=== PATIENT | male | born 1930 | race Native Hawaiian/Other Pacific Islander ===

== ENCOUNTER 2017-09-29 17:08 | Emergency (ER) | payer MEDICARE, OTHER ==
[~2017-09-29] VITALS: Ht 167.6 cm; Wt 90.9 kg
[2017-09-29] MEDS ORDERED: ALLO300 PO (17:18)
[2017-09-29] MEDS ORDERED: LISI-661 PO (17:18)
[2017-09-29] MEDS ORDERED: METO50 PO (17:18)
[2017-09-29] MEDS ORDERED: ATOR10TA84 PO (17:18)
[2017-09-29] MEDS ORDERED: AMIO200T44 PO (17:18)
[2017-09-29] MEDS ORDERED: ASPI-556 PO (17:18)
[2017-09-29 19:56] LABS: BASOPHILS % (AUTO) 1.4 % (0.0-2.0); EOSINOPHILS % (AUTO) 5.6 % (1.0-6.0); HEMATOCRIT 33.5 % (41-53); HEMOGLOBIN 11.4 g/dL (13.5-17.5); LYMPHOCYTES # (AUTO) 1.4 K/uL (1.0-4.8); LYMPHOCYTES % (AUTO) 24.2 % (22.0-44.0); MEAN CORPUSCULAR HEMOGLOBIN 33.3 pg (26.0-34.0); MEAN CORPUSCULAR HGB CONC 33.9 G/dL (31.0-37.0); MEAN CORPUSCULAR VOLUME 98 fL (80-100); MONOCYTES # (AUTO) 0.7 K/uL (0.1-1.0); MONOCYTES % (AUTO) 12.2 % (2.0-9.0); NEUTROPHILS # (AUTO) 3.3 K/uL (1.8-7.7); NEUTROPHILS % (AUTO) 56.6 % (40.0-70.0); PLATELET COUNT (AUTO) 196 K/uL (150-450); RED BLOOD CELL COUNT(AUTO) 3.41 MIL/uL (4.50-5.90)
[2017-09-29 20:06] LABS: ANION GAP 4 mmol/L (8-16); CALCIUM, TOTAL 8.2 mg/dL (8.8-10.5); CARBON DIOXIDE 31 mmol/L (22-29); CHLORIDE 104 mmol/L (98-107); CREATININE 1.25 mg/dL (0.60-1.30); GLOMERULAR FILTR. RATE CALC 55 mL/min (>60); GLUCOSE,RANDOM 89 mg/dL (70-110); INR 1.1 (0.9-1.1); POTASSIUM 3.6 mmol/L (3.5-5.1); PROTHROMBIN TIME 11.4 SEC (9.4-11.6); SODIUM SERUM 139 mmol/L (136-145); UREA NITROGEN, BLOOD 11 mg/dL (7-18)
[2017-09-29 20:13] LABS: B-TYPE NATRIURETIC PEPTIDE 179 pg/mL (0-100)
[2017-09-29 20:29] LABS: ALANINE AMINOTRANSFERASE 47 U/L (12-78); ALBUMIN 3.1 g/dL (3.4-5.0); ALKALINE PHOSPHATASE 112 U/L (46-116); ASPARTATE AMINOTRANSFERASE 44 U/L (15-37); BILIRUBIN,TOTAL 0.7 mg/dL (0.1-1.0); CREATINE KINASE MB 0.5 ng/mL (0-5); CREATINE KINASE, TOTAL 83 U/L (39-308); LIPASE 130 U/L (73-393); TOTAL PROTEIN, SERUM 7.2 g/dL (6.4-8.2)
[2017-09-29 20:46] LABS: APPEARANCE,URINE CLEAR (CLEAR); BILIRUBIN,URINE NEGATIVE (NEGATIVE); GLUCOSE, URINE (UA) NEGATIVE (NEGATIVE); KETONES,URINE NEGATIVE (NEGATIVE); LEUKOCYTE ESTERASE ,URINE SMALL (NEGATIVE); NITRATE,URINE NEGATIVE (NEGATIVE); OCCULT BLOOD,URINE TRACE (NEGATIVE); PROTEIN,URINE TRACE (NEGATIVE)
[2017-09-29 21:00] LABS: RBC,URINE 0-2 /HPF (0-2)
[2017-09-29 21:01] LABS: BACTERIA,URINE Few /HPF (None Seen); SQUAMOUS EPITHELIAL CELL,UR Few /LPF (None Seen)
[2017-09-29] MEDS ORDERED: LEVOFLOXACIN 500 MG/D5% WATER 100 ML IV ONE (21:30)
[2017-09-29 22:26] VITALS: BP 131/62
== END 2017-09-29 22:26 | disposition home or self-care (01) ==
LOC: EMS 17:09
DX: N39.0 Urinary tract infection, site not specified (principal); I10 Essential (primary) hypertension; Z79.82 Long term (current) use of aspirin
CPT/HCPCS: 36415; 71045; 80053; 81001; 82550; 82553; 83690; 83880; 84484; 85025; 85610; 85730; 87086; 93005; 96365; 99285; J1956

== ENCOUNTER 2017-12-07 13:28 | Inpatient (IN) | payer MEDICARE, OTHER ==
[~2017-12-07] VITALS: Ht 167.6 cm; Wt 66.1 kg
[~2017-12-07 13:28] MED LIST: ALLO300 PO; AMIO200T44 PO; AMOX1TAB16 PO; ASPI-556 PO; ATOR10TA84 PO; LISI-661 PO; METO50 PO
[2017-12-07] MEDS ORDERED: SODIUM CHLORIDE 0.9% 1,000 ML IV ONE (14:45)
[2017-12-07 15:04] LABS: EOSINOPHILS % (AUTO) 2.7 % (1.0-6.0); HEMATOCRIT 34.6 % (41-53); HEMOGLOBIN 11.7 g/dL (13.5-17.5); LYMPHOCYTES # (AUTO) 1.1 K/uL (1.0-4.8); MEAN CORPUSCULAR HEMOGLOBIN 32.3 pg (26.0-34.0); MEAN CORPUSCULAR HGB CONC 33.9 G/dL (31.0-37.0); MEAN CORPUSCULAR VOLUME 95 fL (80-100); MONOCYTES # (AUTO) 0.6 K/uL (0.1-1.0); NEUTROPHILS # (AUTO) 2.1 K/uL (1.8-7.7); NEUTROPHILS % (AUTO) 53.3 % (40.0-70.0); PLATELET COUNT (AUTO) 243 K/uL (150-450); RED BLOOD CELL COUNT(AUTO) 3.64 MIL/uL (4.50-5.90); RED CELL DISTRIBUTION WIDTH 14.2 % (11.5-14.5)
[2017-12-07 15:10] LABS: ANION GAP 9 mmol/L (8-16); CALCIUM, TOTAL 8.5 mg/dL (8.8-10.5); CARBON DIOXIDE 26 mmol/L (22-29); CHLORIDE 100 mmol/L (98-107); CREATININE 1.37 mg/dL (0.60-1.30); GLOMERULAR FILTR. RATE CALC 49 mL/min (>60); GLUCOSE,RANDOM 129 mg/dL (70-110); POTASSIUM 3.7 mmol/L (3.5-5.1); SODIUM SERUM 135 mmol/L (136-145); UREA NITROGEN, BLOOD 11 mg/dL (7-18)
[2017-12-07 15:18] LABS: LACTIC ACID 1.7 mmol/L (0.4-2.0)
[2017-12-07 15:25] LABS: ALANINE AMINOTRANSFERASE 44 U/L (12-78); ALBUMIN 2.7 g/dL (3.4-5.0); ALKALINE PHOSPHATASE 107 U/L (46-116); ASPARTATE AMINOTRANSFERASE 50 U/L (15-37); BILIRUBIN,TOTAL 0.5 mg/dL (0.1-1.0); CREATINE KINASE, TOTAL 50 U/L (39-308); LIPASE 119 U/L (73-393); TOTAL PROTEIN, SERUM 7.2 g/dL (6.4-8.2)
[2017-12-07 16:34] LABS: ERYTHROCYTE SEDIMENTATION RATE 86 MM/HR (0-15)
[2017-12-07] MEDS ORDERED: 0.9% SODIUM CHLORIDE 10 ML SYRINGE IVP PRN ×2 (18:15→22:15)
[2017-12-07] MEDS ORDERED: ACETAMINOPHEN 325 MG TABLET PO PRN ×2 (18:15→22:15)
[2017-12-07] MEDS ORDERED: ONDANSETRON HCL 4 MG/2 ML VIAL IVP PRN ×2 (18:15→22:15)
[2017-12-07 18:26] LABS: INFLUENZA TYPE A NEGATIVE FOR TYPE A (NEGATIVE); INFLUENZA TYPE B NEGATIVE FOR TYPE B (NEGATIVE)
[2017-12-07 19:39] LABS: APPEARANCE,URINE CLEAR (CLEAR); BILIRUBIN,URINE NEGATIVE (NEGATIVE); GLUCOSE, URINE (UA) NEGATIVE (NEGATIVE); KETONES,URINE NEGATIVE (NEGATIVE); LEUKOCYTE ESTERASE ,URINE TRACE (NEGATIVE); NITRATE,URINE NEGATIVE (NEGATIVE); OCCULT BLOOD,URINE LARGE (NEGATIVE); PROTEIN,URINE NEGATIVE (NEGATIVE)
[2017-12-07 20:20] LABS: BACTERIA,URINE Rare /HPF (None Seen); SQUAMOUS EPITHELIAL CELL,UR Few /LPF (None Seen)
[2017-12-07 20:56] VITALS: BP 162/70
[2017-12-07] MEDS ORDERED: ZOLPIDEM TARTRATE 5 MG TABLET PO PRN (22:15)
[2017-12-07] MEDS: DOCUSATE SODIUM 100 MG CAPSULE PO SCH (23:19)
[2017-12-07] MEDS: HEPARIN SODIUM,PORCINE 5,000 UNITS/ML VIAL SQ SCH (23:19)
[2017-12-07 23:45] VITALS: BP 125/76
[2017-12-08] MEDS ORDERED: PNEUMOCOCCAL VACCINE POLYVALENT 0.5 ML VIAL [PPSV23] IM ONE (00:30)
[2017-12-08 04:30] VITALS: BP 126/79
[2017-12-08 06:03] LABS: EOSINOPHILS % (AUTO) 3.6 % (1.0-6.0); HEMATOCRIT 32.1 % (41-53); LYMPHOCYTES # (AUTO) 1.4 K/uL (1.0-4.8); LYMPHOCYTES % (AUTO) 32.2 % (22.0-44.0); MEAN CORPUSCULAR HEMOGLOBIN 32.8 pg (26.0-34.0); MEAN CORPUSCULAR HGB CONC 34.4 G/dL (31.0-37.0); MEAN CORPUSCULAR VOLUME 95 fL (80-100); MONOCYTES # (AUTO) 0.7 K/uL (0.1-1.0); MONOCYTES % (AUTO) 14.9 % (2.0-9.0); NEUTROPHILS # (AUTO) 2.1 K/uL (1.8-7.7); NEUTROPHILS % (AUTO) 48.3 % (40.0-70.0); PLATELET COUNT (AUTO) 216 K/uL (150-450); RED BLOOD CELL COUNT(AUTO) 3.37 MIL/uL (4.50-5.90)
[2017-12-08 06:15] LABS: ANION GAP 4 mmol/L (8-16); CALCIUM, TOTAL 7.8 mg/dL (8.8-10.5); CARBON DIOXIDE 30 mmol/L (22-29); CHLORIDE 102 mmol/L (98-107); CREATININE 1.12 mg/dL (0.60-1.30); GLUCOSE,RANDOM 89 mg/dL (70-110); POTASSIUM 3.9 mmol/L (3.5-5.1); SODIUM SERUM 136 mmol/L (136-145); THYROID STIMULATING HORMONE 1.36 uIU/mL (0.36-3.74); UREA NITROGEN, BLOOD 11 mg/dL (7-18)
[2017-12-08 06:25] LABS: GLOMERULAR FILTR. RATE CALC > 60 mL/min (>60)
[2017-12-08 07:50] VITALS: BP 135/79
[2017-12-08] MEDS: METOPROLOL TARTRATE 50 MG TABLET PO SCH (08:50)
[2017-12-08] MEDS: HEPARIN SODIUM,PORCINE 5,000 UNITS/ML VIAL SQ SCH ×2 (08:50→16:37)
[2017-12-08] MEDS: DOCUSATE SODIUM 100 MG CAPSULE PO SCH ×2 (08:50→20:12)
[2017-12-08] MEDS: LISINOPRIL 10 MG TABLET PO SCH (08:50)
[2017-12-08] MEDS: ASPIRIN 81 MG EC TABLET PO SCH (08:50)
[2017-12-08] MEDS: PANTOPRAZOLE SODIUM 40 MG/VIAL IVP SCH (08:50)
[2017-12-08] MEDS: AMIODARONE HCL 200 MG TABLET PO SCH (08:50)
[2017-12-08] MEDS: ALLOPURINOL 300 MG TABLET PO SCH (08:50)
[2017-12-08] MEDS: ATORVASTATIN CALCIUM 10 MG TABLET PO SCH (08:50)
[2017-12-08 12:09] VITALS: BP 114/64
[2017-12-08] MEDS ORDERED: MAGNESIUM SULFATE 4 GM/WATER 100 ML IV PRN (15:15)
[2017-12-08] MEDS ORDERED: MAGNESIUM SULFATE 2 GM/WATER 50 ML IV PRN (15:15)
[2017-12-08] MEDS ORDERED: MAGNESIUM OXIDE 400 MG TABLET PO PRN (15:15)
[2017-12-08 16:00] VITALS: BP 122/77
[2017-12-08 16:13] LABS: ALBUMIN 2.7 g/dL (3.4-5.0)
[2017-12-08 20:05] VITALS: BP 101/60
[2017-12-08 23:30] VITALS: BP 134/76
[2017-12-09] MEDS: HEPARIN SODIUM,PORCINE 5,000 UNITS/ML VIAL SQ SCH ×3 (00:04→16:33)
[2017-12-09 04:00] VITALS: BP 128/80
[2017-12-09 05:54] LABS: EOSINOPHILS % (AUTO) 2.8 % (1.0-6.0); HEMATOCRIT 32.7 % (41-53); HEMOGLOBIN 11.2 g/dL (13.5-17.5); LYMPHOCYTES # (AUTO) 1.6 K/uL (1.0-4.8); LYMPHOCYTES % (AUTO) 34.2 % (22.0-44.0); MEAN CORPUSCULAR HEMOGLOBIN 32.6 pg (26.0-34.0); MEAN CORPUSCULAR HGB CONC 34.3 G/dL (31.0-37.0); MEAN CORPUSCULAR VOLUME 95 fL (80-100); MONOCYTES # (AUTO) 0.7 K/uL (0.1-1.0); MONOCYTES % (AUTO) 14.8 % (2.0-9.0); NEUTROPHILS # (AUTO) 2.2 K/uL (1.8-7.7); NEUTROPHILS % (AUTO) 47.2 % (40.0-70.0); PLATELET COUNT (AUTO) 235 K/uL (150-450); RED BLOOD CELL COUNT(AUTO) 3.45 MIL/uL (4.50-5.90); RED CELL DISTRIBUTION WIDTH 13.9 % (11.5-14.5)
[2017-12-09 05:59] LABS: ANION GAP 3 mmol/L (8-16); CALCIUM, TOTAL 8.1 mg/dL (8.8-10.5); CARBON DIOXIDE 30 mmol/L (22-29); CHLORIDE 101 mmol/L (98-107); CREATININE 1.13 mg/dL (0.60-1.30); GLUCOSE,RANDOM 85 mg/dL (70-110); POTASSIUM 4.1 mmol/L (3.5-5.1); SODIUM SERUM 134 mmol/L (136-145); UREA NITROGEN, BLOOD 12 mg/dL (7-18)
[2017-12-09 06:42] LABS: GLOMERULAR FILTR. RATE CALC > 60 mL/min (>60)
[2017-12-09 08:00] VITALS: BP 142/81
[2017-12-09 08:28] LABS: C-REACTIVE PROTEIN QUANT 1.83 mg/dL (0.00-0.30)
[2017-12-09] MEDS: AMIODARONE HCL 200 MG TABLET PO SCH (08:38)
[2017-12-09] MEDS: METOPROLOL TARTRATE 50 MG TABLET PO SCH (08:38)
[2017-12-09] MEDS: ATORVASTATIN CALCIUM 10 MG TABLET PO SCH (08:38)
[2017-12-09] MEDS: ALLOPURINOL 300 MG TABLET PO SCH (08:38)
[2017-12-09] MEDS: DOCUSATE SODIUM 100 MG CAPSULE PO SCH ×2 (08:38→19:51)
[2017-12-09] MEDS: LISINOPRIL 10 MG TABLET PO SCH (08:38)
[2017-12-09] MEDS: ASPIRIN 81 MG EC TABLET PO SCH (08:38)
[2017-12-09] MEDS: PANTOPRAZOLE SODIUM 40 MG/VIAL IVP SCH (08:38)
[2017-12-09 11:55] VITALS: BP 112/73
[2017-12-09 15:56] VITALS: BP 119/80
[2017-12-09 19:48] VITALS: BP 96/54
[2017-12-09 23:15] VITALS: BP 121/66
[2017-12-10 04:00] VITALS: BP 114/68
[2017-12-10 07:35] VITALS: BP 115/73
[2017-12-10] MEDS: PANTOPRAZOLE SODIUM 40 MG/VIAL IVP SCH (09:19)
[2017-12-10] MEDS: METOPROLOL TARTRATE 50 MG TABLET PO SCH (09:20)
[2017-12-10] MEDS: HEPARIN SODIUM,PORCINE 5,000 UNITS/ML VIAL SQ SCH ×3 (09:20→16:09)
[2017-12-10] MEDS: ALLOPURINOL 300 MG TABLET PO SCH (09:20)
[2017-12-10] MEDS: AMIODARONE HCL 200 MG TABLET PO SCH (09:20)
[2017-12-10] MEDS: DOCUSATE SODIUM 100 MG CAPSULE PO SCH ×2 (09:20→19:58)
[2017-12-10] MEDS: ASPIRIN 81 MG EC TABLET PO SCH (09:22)
[2017-12-10] MEDS: LISINOPRIL 10 MG TABLET PO SCH (09:23)
[2017-12-10] MEDS: ATORVASTATIN CALCIUM 10 MG TABLET PO SCH (09:24)
[2017-12-10 11:42] VITALS: BP 122/68
[2017-12-10 15:15] VITALS: BP 151/74
[2017-12-10 19:25] VITALS: BP 144/75
[2017-12-10 23:15] VITALS: BP 108/63
[2017-12-11] MEDS: HEPARIN SODIUM,PORCINE 5,000 UNITS/ML VIAL SQ SCH ×3 (00:24→15:51)
[2017-12-11 02:00] LABS: APPEARANCE,URINE CLEAR (CLEAR); BILIRUBIN,URINE NEGATIVE (NEGATIVE); GLUCOSE, URINE (UA) NEGATIVE (NEGATIVE); KETONES,URINE NEGATIVE (NEGATIVE); LEUKOCYTE ESTERASE ,URINE MODERATE (NEGATIVE); NITRATE,URINE NEGATIVE (NEGATIVE); OCCULT BLOOD,URINE SMALL (NEGATIVE); PH,URINE 5.5 (5.0-8.0); PROTEIN,URINE NEGATIVE (NEGATIVE); UROBILINOGEN,URINE 0.2 mg/dL (<=1.0)
[2017-12-11 02:19] LABS: BACTERIA,URINE Rare /HPF (None Seen)
[2017-12-11 02:20] LABS: SQUAMOUS EPITHELIAL CELL,UR Rare /LPF (None Seen)
[2017-12-11 03:30] VITALS: BP 116/69
[2017-12-11 06:48] LABS: BASOPHILS % (AUTO) 0.9 % (0.0-2.0); HEMATOCRIT 32.3 % (41-53); HEMOGLOBIN 11.1 g/dL (13.5-17.5); LYMPHOCYTES % (AUTO) 32.2 % (22.0-44.0); MEAN CORPUSCULAR HEMOGLOBIN 32.3 pg (26.0-34.0); MEAN CORPUSCULAR HGB CONC 34.4 G/dL (31.0-37.0); MEAN CORPUSCULAR VOLUME 94 fL (80-100); MONOCYTES # (AUTO) 0.9 K/uL (0.1-1.0); MONOCYTES % (AUTO) 14.6 % (2.0-9.0); NEUTROPHILS # (AUTO) 3.2 K/uL (1.8-7.7); NEUTROPHILS % (AUTO) 51.3 % (40.0-70.0); PLATELET COUNT (AUTO) 224 K/uL (150-450); RED BLOOD CELL COUNT(AUTO) 3.44 MIL/uL (4.50-5.90); RED CELL DISTRIBUTION WIDTH 14.1 % (11.5-14.5)
[2017-12-11 07:39] LABS: C-REACTIVE PROTEIN QUANT 1.39 mg/dL (0.00-0.30)
[2017-12-11 07:55] VITALS: BP 141/63
[2017-12-11 08:18] LABS: ERYTHROCYTE SEDIMENTATION RATE 65 MM/HR (0-15)
[2017-12-11] MEDS: ASPIRIN 81 MG EC TABLET PO SCH (08:48)
[2017-12-11] MEDS: LISINOPRIL 10 MG TABLET PO SCH (08:48)
[2017-12-11] MEDS: ATORVASTATIN CALCIUM 10 MG TABLET PO SCH (08:48)
[2017-12-11] MEDS: METOPROLOL TARTRATE 50 MG TABLET PO SCH (08:48)
[2017-12-11] MEDS: PANTOPRAZOLE SODIUM 40 MG/VIAL IVP SCH (08:48)
[2017-12-11] MEDS: ALLOPURINOL 300 MG TABLET PO SCH (08:49)
[2017-12-11] MEDS: AMIODARONE HCL 200 MG TABLET PO SCH (08:49)
[2017-12-11] MEDS: DOCUSATE SODIUM 100 MG CAPSULE PO SCH ×2 (08:49→20:01)
[2017-12-11 11:30] VITALS: BP 123/68
[2017-12-11] MEDS ORDERED: INDIUM IN-111 OXYQUINOLINE/.5MCL ISOTOPE 1 EA INJ INJ ONE (12:55)
[2017-12-11 16:12] VITALS: BP 122/79
[2017-12-11 19:10] LABS: RAPID PLASMA REAGIN NONREACTIVE (NONREACTIVE)
[2017-12-11 23:30] VITALS: BP 104/69
[2017-12-12] MEDS: HEPARIN SODIUM,PORCINE 5,000 UNITS/ML VIAL SQ SCH ×2 (00:03→09:00)
[2017-12-12 04:50] VITALS: BP 138/70
[2017-12-12 07:59] VITALS: BP 126/72
[2017-12-12] MEDS: METOPROLOL TARTRATE 50 MG TABLET PO SCH (09:00)
[2017-12-12] MEDS: AMIODARONE HCL 200 MG TABLET PO SCH (09:00)
[2017-12-12] MEDS: DOCUSATE SODIUM 100 MG CAPSULE PO SCH (09:00)
[2017-12-12] MEDS: PANTOPRAZOLE SODIUM 40 MG/VIAL IVP SCH (09:00)
[2017-12-12] MEDS: ALLOPURINOL 300 MG TABLET PO SCH (09:00)
[2017-12-12] MEDS: ATORVASTATIN CALCIUM 10 MG TABLET PO SCH (09:00)
[2017-12-12] MEDS: ASPIRIN 81 MG EC TABLET PO SCH (09:01)
[2017-12-12] MEDS: LISINOPRIL 10 MG TABLET PO SCH (09:01)
[2017-12-12 11:23] VITALS: BP 115/68
[2017-12-15 10:45] LABS: BARTONELLA QUINTANA IGG TITER Negative titer (Neg:<1:320); BARTONELLA QUINTANA IGM TITER Negative titer (Neg:<1:100)
[2017-12-15 12:42] LABS: LEGIONELLA PNEUMO AG URINE Negative (Negative)
== END 2017-12-12 14:59 | disposition home or self-care (01) | DRG 864 ==
LOC: EMS 13:30 → UNDOADMIN 18:53 → 6N 18:53
PROVIDERS: ADMIT Internal Medicine; ATTEND Internal Medicine
DX: R50.9 Fever, unspecified (principal); J98.11 Atelectasis; J90 Pleural effusion, not elsewhere classified; I25.10 Atherosclerotic heart disease of native coronary artery without angina pectoris; E78.5 Hyperlipidemia, unspecified; I48.91 Unspecified atrial fibrillation; N28.1 Cyst of kidney, acquired; K59.00 Constipation, unspecified; M47.896 Other spondylosis, lumbar region; J47.9 Bronchiectasis, uncomplicated; N20.0 Calculus of kidney; M48.061 Spinal stenosis, lumbar region without neurogenic claudication; I11.9 Hypertensive heart disease without heart failure; M43.16 Spondylolisthesis, lumbar region; I70.0 Atherosclerosis of aorta; E78.00 Pure hypercholesterolemia, unspecified; M46.90 Unspecified inflammatory spondylopathy, site unspecified; M10.9 Gout, unspecified; R70.0 Elevated erythrocyte sedimentation rate; Z90.49 Acquired absence of other specified parts of digestive tract; Z95.5 Presence of coronary angioplasty implant and graft; Z28.21 Immunization not carried out because of patient refusal; Z95.0 Presence of cardiac pacemaker
CPT/HCPCS: 51701; 71250; 72131; 74176; 78806; 82308; 83605; 83615; 83735; 84145; 84155; 84165; 84443; 85651; 86038; 86140; 86430; 86431; 86480; 86592; 86611; 86622; 86738; 87040; 87070; 87081; 87086; 87205; 87449; 87804; 87899; 93005; 93306; 96361; 96374; 99285; A9547; C9113; J1644; J7030

== ENCOUNTER 2019-03-15 15:23 | Emergency (ER) | payer MEDICARE, OTHER ==
[~2019-03-15] VITALS: Ht 170.2 cm; Wt 72.7 kg
[~2019-03-15 15:23] MED LIST changes: -AMOX1TAB16 PO
[2019-03-15 16:34] LABS: BASOPHILS % (AUTO) 1.5 % (0.0-2.0); EOSINOPHILS % (AUTO) 2.1 % (1.0-6.0); HEMATOCRIT 36.9 % (41-53); HEMOGLOBIN 12.2 g/dL (13.5-17.5); LYMPHOCYTES # (AUTO) 1.6 K/uL (1.0-4.8); LYMPHOCYTES % (AUTO) 43.5 % (22.0-44.0); MEAN CORPUSCULAR HGB CONC 33.1 G/dL (31.0-37.0); MEAN CORPUSCULAR VOLUME 94 fL (80-100); MONOCYTES # (AUTO) 0.4 K/uL (0.1-1.0); MONOCYTES % (AUTO) 11.6 % (2.0-9.0); NEUTROPHILS # (AUTO) 1.5 K/uL (1.8-7.7); NEUTROPHILS % (AUTO) 41.3 % (40.0-70.0); PLATELET COUNT (AUTO) 149 K/uL (150-450); RED BLOOD CELL COUNT(AUTO) 3.94 MIL/uL (4.50-5.90); RED CELL DISTRIBUTION WIDTH 14.4 % (11.5-14.5)
[2019-03-15 16:49] LABS: ANION GAP 8 mmol/L (8-16); CALCIUM, TOTAL 8.6 mg/dL (8.8-10.5); CARBON DIOXIDE 27 mmol/L (22-29); CHLORIDE 104 mmol/L (98-107); CREATININE 0.94 mg/dL (0.60-1.30); GLUCOSE,RANDOM 96 mg/dL (70-110); POTASSIUM 3.5 mmol/L (3.5-5.1); SODIUM SERUM 139 mmol/L (136-145); UREA NITROGEN, BLOOD 9 mg/dL (7-18)
[2019-03-15 16:54] LABS: ALANINE AMINOTRANSFERASE 8 U/L (12-78); ALBUMIN 3.4 g/dL (3.4-5.0); ALKALINE PHOSPHATASE 91 U/L (46-116); ASPARTATE AMINOTRANSFERASE 28 U/L (15-37); BILIRUBIN,TOTAL 0.9 mg/dL (0.1-1.0); LIPASE 118 U/L (73-393); TOTAL PROTEIN, SERUM 7.7 g/dL (6.4-8.2)
[2019-03-15 16:55] LABS: GLOMERULAR FILTR. RATE CALC > 60 mL/min (>60)
[2019-03-15 19:49] LABS: APPEARANCE,URINE CLOUDY (CLEAR); GLUCOSE, URINE (UA) NEGATIVE (NEGATIVE); KETONES,URINE TRACE mg/dL (NEGATIVE); LEUKOCYTE ESTERASE ,URINE LARGE (NEGATIVE); NITRATE,URINE NEGATIVE (NEGATIVE); OCCULT BLOOD,URINE SMALL (NEGATIVE); PH,URINE 5.5 (5.0-8.0); PROTEIN,URINE TRACE (NEGATIVE)
[2019-03-15 20:17] LABS: BILIRUBIN,URINE PRELIM. POSITIVE (NEGATIVE)
[2019-03-15 20:32] LABS: WBC,URINE 51-100 /HPF (0-5)
[2019-03-15 20:33] LABS: BACTERIA,URINE Moderate /HPF (None Seen); RBC,URINE 0-2 /HPF (0-2); SQUAMOUS EPITHELIAL CELL,UR Few /LPF (None Seen); YEAST,URINE Few /HPF (None Seen)
[2019-03-15] MEDS ORDERED: CefTRIAXone SODIUM 1 GM/VIAL IM ONE (21:15)
[2019-03-15] MEDS ORDERED: LIDOCAINE/PF 1% 2 ML VIAL IM ONE (21:15)
[2019-03-15 21:30] VITALS: BP 128/74
== END 2019-03-15 22:35 | disposition home or self-care (01) ==
LOC: EMS 15:24
DX: N39.0 Urinary tract infection, site not specified (principal); I10 Essential (primary) hypertension; E78.00 Pure hypercholesterolemia, unspecified; I25.10 Atherosclerotic heart disease of native coronary artery without angina pectoris; I48.91 Unspecified atrial fibrillation
CPT/HCPCS: 36415; 71045; 74176; 80053; 81001; 83690; 84484; 85025; 87086; 93005; 96372; 99284; J0696; J3490

== ENCOUNTER 2019-06-19 17:29 | Inpatient (IN) | payer MEDICARE, OTHER ==
[~2019-06-19] VITALS: Ht 165.1 cm; Wt 70.2 kg
[2019-06-19] MEDS ORDERED: 0.9% SODIUM CHLORIDE 10 ML SYRINGE IVP PRN ×2 (17:45→21:00)
[2019-06-19] MEDS ORDERED: ACETAMINOPHEN 1000 MG/ISO-OSM 100 ML IV ONE (18:00)
[2019-06-19 18:28] LABS: BASOPHILS % (AUTO) 0.6 % (0.0-2.0); EOSINOPHILS % (AUTO) 0 % (1.0-6.0); HEMATOCRIT 35.8 % (41-53); HEMOGLOBIN 12.3 g/dL (13.5-17.5); LYMPHOCYTES # (AUTO) 1.5 K/uL (1.0-4.8); LYMPHOCYTES % (AUTO) 21.6 % (22.0-44.0); MEAN CORPUSCULAR HEMOGLOBIN 33.6 pg (26.0-34.0); MEAN CORPUSCULAR HGB CONC 34.3 G/dL (31.0-37.0); MEAN CORPUSCULAR VOLUME 98 fL (80-100); MONOCYTES # (AUTO) 0.6 K/uL (0.1-1.0); MONOCYTES % (AUTO) 7.9 % (2.0-9.0); NEUTROPHILS # (AUTO) 4.9 K/uL (1.8-7.7); NEUTROPHILS % (AUTO) 69.9 % (40.0-70.0); PLATELET COUNT (AUTO) 115 K/uL (150-450); RED BLOOD CELL COUNT(AUTO) 3.66 MIL/uL (4.50-5.90); RED CELL DISTRIBUTION WIDTH 13.5 % (11.5-14.5)
[2019-06-19] MEDS ORDERED: SODIUM CHLORIDE 0.9% 1,900 ML IV ONE (18:31)
[2019-06-19 18:36] LABS: APPEARANCE,URINE CLOUDY (CLEAR); GLUCOSE, URINE (UA) NEGATIVE (NEGATIVE); KETONES,URINE 15 mg/dL (NEGATIVE); LEUKOCYTE ESTERASE ,URINE SMALL (NEGATIVE); NITRATE,URINE NEGATIVE (NEGATIVE); OCCULT BLOOD,URINE LARGE (NEGATIVE); PROTEIN,URINE SEE CONFIRM (NEGATIVE)
[2019-06-19 18:39] LABS: CALCIUM, TOTAL 8.1 mg/dL (8.8-10.5); CREATININE 1.15 mg/dL (0.60-1.30); POTASSIUM 4.3 mmol/L (3.5-5.1)
[2019-06-19] MEDS ORDERED: AZITHROMYCIN 500 MG/NS 250 ML IV ONE (18:45)
[2019-06-19] MEDS ORDERED: CefTRIAXone 1 GM/DEXTROSE 50 ML IV ONE (18:45)
[2019-06-19 18:47] LABS: BILIRUBIN,URINE PRELIM. POSITIVE (NEGATIVE)
[2019-06-19 18:47] LABS: LACTIC ACID 1.6 mmol/L (0.4-2.0)
[2019-06-19 18:52] LABS: INFLUENZA TYPE A NEGATIVE FOR TYPE A (NEGATIVE); INFLUENZA TYPE B NEGATIVE FOR TYPE B (NEGATIVE)
[2019-06-19 18:53] LABS: SULFOSALICYLIC ACID,URINE 3+ (Negative)
[2019-06-19 18:54] LABS: BACTERIA,URINE None Seen /HPF (None Seen); RBC,URINE Full Field /HPF (0-2)
[2019-06-19 18:55] LABS: INR 1.1 (0.9-1.1); PROTHROMBIN TIME 11.6 SEC (9.4-11.6)
[2019-06-19 19:06] LABS: ALBUMIN 3.4 g/dL (3.4-5.0); BILIRUBIN,TOTAL 0.5 mg/dL (0.1-1.0); TOTAL PROTEIN, SERUM 7.6 g/dL (6.4-8.2)
[2019-06-19] MEDS ORDERED: ALBUTEROL SULFATE 2.5 MG/0.5 ML NEB SOLUTION NEB ONE (19:45)
[2019-06-19] MEDS ORDERED: IPRATROPIUM BROMIDE 0.5 MG/2.5 ML NEB SOLUTION NEB ONE (19:45)
[2019-06-19] MEDS ORDERED: OSELTAMIVIR PHOSPHATE 75 MG CAPSULE PO ONE (20:45)
[2019-06-19] MEDS ORDERED: ONDANSETRON HCL 4 MG/2 ML VIAL IVP PRN (21:00)
[2019-06-19] MEDS ORDERED: ACETAMINOPHEN 325 MG TABLET PO PRN (21:00)
[2019-06-19] MEDS: IPRATROPIUM BROMIDE 0.5 MG/2.5 ML NEB SOLUTION NEB SCH (22:25)
[2019-06-19] MEDS: ALBUTEROL SULFATE 2.5 MG/0.5 ML NEB SOLUTION NEB SCH (22:25)
[2019-06-20] MEDS: IPRATROPIUM BROMIDE 0.5 MG/2.5 ML NEB SOLUTION NEB SCH ×3 (03:00→23:16)
[2019-06-20] MEDS: ALBUTEROL SULFATE 2.5 MG/0.5 ML NEB SOLUTION NEB SCH ×3 (03:00→23:16)
[2019-06-20 03:02] VITALS: BP 162/57
[2019-06-20 05:10] VITALS: BP 159/109
[2019-06-20 12:05] VITALS: BP 147/80
[2019-06-20] MEDS ORDERED: ACETAMINOPHEN 325 MG TABLET ONE (12:42)
[2019-06-20 13:00] LABS: APPEARANCE,URINE CLEAR (CLEAR); BILIRUBIN,URINE NEGATIVE (NEGATIVE); GLUCOSE, URINE (UA) NEGATIVE (NEGATIVE); KETONES,URINE NEGATIVE (NEGATIVE); LEUKOCYTE ESTERASE ,URINE SMALL (NEGATIVE); NITRATE,URINE NEGATIVE (NEGATIVE); OCCULT BLOOD,URINE LARGE (NEGATIVE); PROTEIN,URINE SEE CONFIRM (NEGATIVE); UROBILINOGEN,URINE 0.2 mg/dL (<=1.0)
[2019-06-20 13:17] LABS: BACTERIA,URINE None Seen /HPF (None Seen); RBC,URINE 51-100 /HPF (0-2); SQUAMOUS EPITHELIAL CELL,UR Few /LPF (None Seen)
[2019-06-20 17:42] VITALS: BP 144/75
[2019-06-20 19:50] VITALS: BP 147/109
[2019-06-20] MEDS: ACETAMINOPHEN 325 MG TABLET PO PRN (19:59)
[2019-06-20] MEDS ORDERED: METO50 PO (20:08)
[2019-06-20] MEDS ORDERED: LISI-661 PO (20:08)
[2019-06-20] MEDS ORDERED: SODIUM CHLORIDE 0.9% 100 ML ONE (21:26)
[2019-06-20] MEDS ORDERED: LISINOPRIL 10 MG TABLET PO SCH (21:30)
[2019-06-20] MEDS ORDERED: METOPROLOL TARTRATE 50 MG TABLET PO SCH (21:30)
[2019-06-20] MEDS: AZITHROMYCIN 500 MG/NS 250 ML IV SCH (21:42)
[2019-06-20 22:11] VITALS: BP 131/87
[2019-06-20] MEDS ORDERED: BISACODYL 10 MG RECTAL RECTAL SUPPOSITORY PR PRN (22:15)
[2019-06-20] MEDS ORDERED: HYDROCODONE/ACETAMINOPHEN 5-325 MG TABLET PO PRN (22:15)
[2019-06-20] MEDS ORDERED: ACETAMINOPHEN 325 MG TABLET PO PRN (22:15)
[2019-06-20] MEDS ORDERED: ALBUTEROL SULFATE 2.5 MG/0.5 ML NEB SOLUTION NEB PRN ×2 (22:15→22:30)
[2019-06-20] MEDS ORDERED: MAGNESIUM HYDROXIDE SUSPENSION 30 ML UDCUP PO PRN (22:15)
[2019-06-20] MEDS ORDERED: IPRATROPIUM BROMIDE 0.5 MG/2.5 ML NEB SOLUTION NEB PRN ×2 (22:15→22:30)
[2019-06-20] MEDS ORDERED: MORPHINE SULFATE 2 MG/ML SYRINGE IVP PRN (22:15)
[2019-06-20] MEDS ORDERED: ZOLPIDEM TARTRATE 5 MG TABLET PO PRN (22:15)
[2019-06-20] MEDS ORDERED: ONDANSETRON HCL 4 MG/2 ML VIAL IVP PRN (22:15)
[2019-06-20] MEDS: CefTRIAXone 1 GM/DEXTROSE 50 ML IV SCH (22:58)
[2019-06-21] VITALS (7 sets, daily range): BP systolic 115–158; BP diastolic 59–85
[2019-06-21] MEDS: HEPARIN SODIUM,PORCINE 5,000 UNITS/ML VIAL SQ SCH ×2 (00:07→08:52)
[2019-06-21] MEDS: IPRATROPIUM BROMIDE 0.5 MG/2.5 ML NEB SOLUTION NEB SCH ×6 (03:00→23:19)
[2019-06-21] MEDS: ALBUTEROL SULFATE 2.5 MG/0.5 ML NEB SOLUTION NEB SCH ×6 (03:00→23:19)
[2019-06-21] MEDS: ACETAMINOPHEN 325 MG TABLET PO PRN (04:10)
[2019-06-21] MEDS: METOPROLOL TARTRATE 50 MG TABLET PO SCH (08:52)
[2019-06-21] MEDS: LISINOPRIL 10 MG TABLET PO SCH (08:52)
[2019-06-21] MEDS: DOCUSATE SODIUM 100 MG CAPSULE PO SCH ×2 (08:58→21:00)
[2019-06-21] MEDS: AZITHROMYCIN 500 MG/NS 250 ML IV SCH (21:15)
[2019-06-21] MEDS: CefTRIAXone 1 GM/DEXTROSE 50 ML IV SCH (22:18)
[2019-06-22] MEDS: ALBUTEROL SULFATE 2.5 MG/0.5 ML NEB SOLUTION NEB SCH ×5 (03:00→19:44)
[2019-06-22] MEDS: IPRATROPIUM BROMIDE 0.5 MG/2.5 ML NEB SOLUTION NEB SCH ×5 (03:00→19:44)
[2019-06-22 05:56] VITALS: BP 144/60
[2019-06-22 07:15] LABS: ANION GAP 7 mmol/L (8-16); CALCIUM, TOTAL 7.9 mg/dL (8.8-10.5); CARBON DIOXIDE 26 mmol/L (22-29); CHLORIDE 93 mmol/L (98-107); CREATININE 0.91 mg/dL (0.60-1.30); GLUCOSE,RANDOM 103 mg/dL (70-110); SODIUM SERUM 126 mmol/L (136-145); UREA NITROGEN, BLOOD 9 mg/dL (7-18)
[2019-06-22 07:18] LABS: BASOPHILS % (AUTO) 0.5 % (0.0-2.0); EOSINOPHILS % (AUTO) 0.1 % (1.0-6.0); HEMATOCRIT 31.9 % (41-53); HEMOGLOBIN 11.1 g/dL (13.5-17.5); LYMPHOCYTES % (AUTO) 22.6 % (22.0-44.0); MEAN CORPUSCULAR HEMOGLOBIN 33.2 pg (26.0-34.0); MEAN CORPUSCULAR HGB CONC 34.8 G/dL (31.0-37.0); MEAN CORPUSCULAR VOLUME 96 fL (80-100); MONOCYTES # (AUTO) 0.5 K/uL (0.1-1.0); MONOCYTES % (AUTO) 12.2 % (2.0-9.0); NEUTROPHILS # (AUTO) 2.9 K/uL (1.8-7.7); NEUTROPHILS % (AUTO) 64.6 % (40.0-70.0); PLATELET COUNT (AUTO) 94 K/uL (150-450); RED BLOOD CELL COUNT(AUTO) 3.34 MIL/uL (4.50-5.90); RED CELL DISTRIBUTION WIDTH 13.6 % (11.5-14.5)
[2019-06-22 07:26] LABS: GLOMERULAR FILTR. RATE CALC > 60 mL/min (>60)
[2019-06-22 07:48] VITALS: BP 120/66
[2019-06-22] MEDS: METOPROLOL TARTRATE 50 MG TABLET PO SCH (09:00)
[2019-06-22] MEDS: DOCUSATE SODIUM 100 MG CAPSULE PO SCH ×2 (09:00→20:50)
[2019-06-22] MEDS: LISINOPRIL 10 MG TABLET PO SCH (09:31)
[2019-06-22 11:37] VITALS: BP 112/59
[2019-06-22 15:41] LABS: POTASSIUM,URINE RANDOM 11 mmol/L (12-75); SODIUM,URINE RANDOM 25 mmol/l (20-110)
[2019-06-22 15:42] LABS: CREATININE,URINE RANDOM 32.1 mg/dL (30.0-125.0)
[2019-06-22 16:30] VITALS: BP 112/52
[2019-06-22] MEDS: SODIUM CHLORIDE 0.9% 1,000 ML IV SCH (18:20)
[2019-06-22 19:36] VITALS: BP 132/61
[2019-06-22] MEDS: AZITHROMYCIN 500 MG/NS 250 ML IV SCH (21:26)
[2019-06-22] MEDS: CefTRIAXone 1 GM/DEXTROSE 50 ML IV SCH (22:41)
[2019-06-22 23:46] VITALS: BP 127/59
[2019-06-23] MEDS: IPRATROPIUM BROMIDE 0.5 MG/2.5 ML NEB SOLUTION NEB SCH ×4 (00:56→11:11)
[2019-06-23] MEDS: ALBUTEROL SULFATE 2.5 MG/0.5 ML NEB SOLUTION NEB SCH ×4 (00:57→11:11)
[2019-06-23 04:49] VITALS: BP 148/60
[2019-06-23 07:45] VITALS: BP 142/80
[2019-06-23 07:58] LABS: ANION GAP 8 mmol/L (8-16); CALCIUM, TOTAL 7.9 mg/dL (8.8-10.5); CARBON DIOXIDE 26 mmol/L (22-29); CHLORIDE 96 mmol/L (98-107); CREATININE 0.87 mg/dL (0.60-1.30); GLUCOSE,RANDOM 100 mg/dL (70-110); PHOSPHORUS 2.4 mg/dL (2.5-4.9); POTASSIUM 3.8 mmol/L (3.5-5.1); SODIUM SERUM 130 mmol/L (136-145); UREA NITROGEN, BLOOD 8 mg/dL (7-18)
[2019-06-23 08:02] LABS: GLOMERULAR FILTR. RATE CALC > 60 mL/min (>60)
[2019-06-23] MEDS ORDERED: MAGNESIUM SULFATE 4 GM/WATER 100 ML IV ONE (08:45)
[2019-06-23] MEDS ORDERED: POTASSIUM PHOS/SODIUM PHOS MIXTURE 1 POWDER PACKET PO SCH (09:00)
[2019-06-23] MEDS: SODIUM CHLORIDE 0.9% 1,000 ML IV SCH (09:26)
[2019-06-23] MEDS: METOPROLOL TARTRATE 50 MG TABLET PO SCH (09:27)
[2019-06-23] MEDS: LISINOPRIL 10 MG TABLET PO SCH (09:27)
[2019-06-23] MEDS: DOCUSATE SODIUM 100 MG CAPSULE PO SCH (09:27)
[2019-06-23 11:35] VITALS: BP 149/69
[2019-06-23] MEDS ORDERED: LEVO-72 PO ×2 (14:07→14:13)
== END 2019-06-23 15:45 | disposition home or self-care (01) | DRG 871 ==
LOC: EMS 17:32 → 5S 23:41 → EMS 06-20 01:26 → 5S 06-20 17:31
PROVIDERS: ADMIT Hospitalist; ATTEND Hospitalist
DX: A41.9 Sepsis, unspecified organism (principal); G93.41 Metabolic encephalopathy; N39.0 Urinary tract infection, site not specified; E87.1 Hypo-osmolality and hyponatremia; D61.818 Other pancytopenia; E78.00 Pure hypercholesterolemia, unspecified; I49.5 Sick sinus syndrome; I10 Essential (primary) hypertension; E86.1 Hypovolemia; E78.5 Hyperlipidemia, unspecified; I48.91 Unspecified atrial fibrillation; I25.10 Atherosclerotic heart disease of native coronary artery without angina pectoris; M10.9 Gout, unspecified; I70.0 Atherosclerosis of aorta; Z98.890 Other specified postprocedural states; Z90.49 Acquired absence of other specified parts of digestive tract; Z95.0 Presence of cardiac pacemaker; Z79.899 Other long term (current) drug therapy; Z87.442 Personal history of urinary calculi; Z86.73 Personal history of transient ischemic attack (TIA), and cerebral infarction without residual deficits
CPT/HCPCS: 70450; 82533; 82570; 83605; 83735; 83935; 84100; 84133; 84145; 84300; 87040; 87086; 87804; 93005; 94060; 94640; 97116; 97162; 97166; 97530; 97535; 99291; J0131; J0456; J0696; J1644; J3475; J7030; J7050